=== PATIENT | female | born 1985 | race Caucasian/White ===

== ENCOUNTER → 2022-03-09 | Outpatient (CLI) | payer BC ==
[2022-03-09 10:25] LABS: BASO # 0.05 K/mm3 (0.02-0.10); EOS # 0.12 K/mm3 (0.04-0.40); EOS % 2.1 % (1.0-5.0); HEMATOCRIT 40.5 % (37.0-47.0); HEMOGLOBIN 13.7 g/dL (12.5-16.0); LYMPH# 1.83 K/mm3 (1.50-4.00); MEAN CELL VOLUME 87 fl (78-100); MEAN CORPUSCULAR HEMOGLOBIN 29 pg (27-31); MEAN CORPUSCULAR HGB CONC 34 g/dL (33-37); MEAN PLATELET VOLUME 10.8 fl (7.4-10.4); MONO # 0.39 K/mm3 (0.20-0.80); NEU # 3.29 K/mm3 (1.40-6.50); PLATELET COUNT 218 K/mm3 (130-400); RED BLOOD COUNT 4.66 M/mm3 (4.10-5.30); RED CELL DISTRIBUTION WIDTH 12.7 % (11.5-14.5); WHITE BLOOD COUNT 5.7 K/mm3 (4.8-10.8)
[2022-03-09 10:34] LABS: ALBUMIN 4.3 g/dL (3.5-5.0)
[2022-03-09 10:35] LABS: CALCIUM 8.9 mg/dL (8.3-10.5)
[2022-03-09 10:36] LABS: TOTAL PROTEIN 7.3 g/dL (6.4-8.3)
[2022-03-09 10:38] LABS: TOTAL BILIRUBIN 0.4 mg/dL (0.2-1.2)
[2022-03-09 23:27] LABS: FOLLICLE STIMULATING HORMONE 5.7 mIU/mL (()); LUTENIZING HORMONE 3.8 mIU/mL (()); PROGESTERONE 0.3 ng/mL (())
== END ==
LOC: LAB 10:05
PROVIDERS: Family Medicine
DX: Z00.00 Encounter for general adult medical examination without abnormal findings (principal); N91.1 Secondary amenorrhea; E78.5 Hyperlipidemia, unspecified